=== PATIENT | female | born 1940 | race Caucasian/White ===

== ENCOUNTER → 2016-06-02 12:21 | Outpatient (CLI) | payer MEDICARE | END | disposition home or self-care (01) | LOC: D.RAD 12:21 | DX: M25.512 Pain in left shoulder (principal); M25.511 Pain in right shoulder ==

== ENCOUNTER → 2018-11-26 08:09 | Outpatient (CLI) | payer MEDICARE ==
--- NOTE | 2018-11-28 14:22 | EC ---
PATIENT:JASSI HOWE DATE OF SERVICE: 11/26/18 SEX: F MEDICAL RECORD: [id number] DATE OF : 42 LOCATION:[facility] AGE OF PATIENT: 78 ADMISSION DATE: 11/26/18 REFERRING PHYSICIAN: INTERPRETING PHYSICIAN: KLAUS PARISI MD ECHOCARDIOGRAM REPORT ECHO CHARGES 4 ECHO COMPLETE Date: 11/26/18 CLINICAL DIAGNOSIS: HEART MURMUR ECHOCARDIOGRAPHIC MEASUREMENTS (adult normal given) AC root (d.<3.7cm) 3.4 cm LV Septum d (<1.2 cm> 1.3 cm Valve Excursion 1.7 cm LV Septum (systole) 1.5 cm Left Atria (s.<4.0cm> 2.8 cm LVPW d(<1.2cm) 1.4 cm RV (d.<2.3cm) 3.7 cm LVPW (sytole) 1.6 cm LV diastole(<5.6CM) 4.0 cm MV E-F(>70mm/sec) cm LV systole 2.5 cm LVOT Diameter 1.9 cm MV exc.(>10mm) 1.4 cm Est.ejection fraction (50-75%) % DOPPLER: LVIT cm/sec A 98.0 cm/sec E 52.0 cm/sec LA cm/sec RVSP 14 mmHg LVOT 96 cm/sec AOP1/2T m/s Asc. Ao 131 cm/sec RVOT 92 cm/sec RA cm/sec PA 113 cm/sec AV Gradient Peak 6.87 mmHg AV Mean 3.01 mmHg AV Area 2.4 cm MV Gradient Peak 5.58 mmHg MV Mean 1.97 mmHg MV Area cm COMMENTS: Surgical Garment Fitter: 2 TIANA EWING Bone Char Kiln Operator: 3 Dr. Ma TAPE# PACS Pericardial Effusion N DATE OF SERVICE: 11/26/2018 Adequate 2D, color flow imaging, spectral Doppler, and M-Mode Mild LVH. LV internal dimensions are normal. Normal wall motion. Normal systolic function. EF is greater than or equal to 55%. Aortic valve is tricuspid. No evidence of stenosis by Doppler interrogation. Left atrium is normal. Mitral valve shows no prolapse. Trace MR. Right-sided chambers are grossly normal. Trace TR. ECHOCARDIOGRAM REPORT [id number] JASSI HOWE TRANSINT:[id number] Voice Confirmation ID: [id number] DOCUMENT ID: [id number] KLAUS PARISI MD at 1422 CC: [id number] DICTATION DATE: 11/27/181423 SENIOR ARCHITECT: 11/27/18 2316 [facility] CLI 11/26/18 [place] [id number] [place] [id number]
--- NOTE | 2018-11-29 09:14 | ST ---
PATIENT:JASSI HOWE MEDICAL RECORD: [id number] SEX: F LOCATION:[facility] ORDER #: ADMISSION DATE: 11/26/18 AGE OF PATIENT: 78 REFERRING PHYSICIAN: INTERPRETING PHYSICIAN: YAHIR SMITH MD DATE OF SERVICE: 11/26/2018 Nuclear Stress Test INDICATIONS: Angina, shortness of breath, abnormal ECG. She was exercised at standard Lexiscan protocol with 33 mCi of sestamibi injected at peak stress, 11 mCi used previously for rest images. FINDINGS: Gated SPECT reveals preserved ejection fraction at 77% with good wall motion and thickening and brightening throughout all segments. SPECT Imaging: Cardiolite was used as myocardial fusion agent. There is homogeneous uptake throughout all segments at rest and stress with no evidence of inducible ischemia or previous infarction. OVERALL IMPRESSION: 1. This is a normal nuclear stress test with no evidence of inducible ischemia or previous infarction. 2. Gated SPECT reveals a preserved ejection fraction at 77%. In this patient with ongoing symptomatology, the current scan does not suggest the presence of hemodynamically significant coronary artery disease. Evaluate noncardiac etiology of chest pain. TRANSINT:[id number] Voice Confirmation ID: [id number] DOCUMENT ID: [id number] YAHIR SMITH MD at 0914 CC: LANIE ANDERSON DO [id number] DICTATION DATE: 11/27/18 1121 FLOOR GRINDER: 11/28/18 0457 [facility] CLI 11/26/18 [place] [id number] [place] [address]
== END | disposition home or self-care (01) ==
LOC: D.HCCECHO 08:09
PROVIDERS: ATTEND Internal Medicine Interventional Cardiology
DX: I20.9 Angina pectoris, unspecified (principal)